=== PATIENT | female | born 1960 | race Caucasian/White ===

== ENCOUNTER 2018-02-21 09:01 | Outpatient (CLI) | payer OTHER | END 2018-02-21 09:14 | disposition home or self-care (01) | LOC: SONOGRAMA 09:01 | DX: N84.0 Polyp of corpus uteri (principal) ==

== ENCOUNTER 2018-03-22 07:40 | Day surgery (SDC) | payer OTHER ==
[~2018-03-22 07:40] MED LIST: MULTI VITAMIN1 EACH PO; SYNTHROID50 MCG PO
[2018-03-22] MEDS ORDERED: DOXYCYCLINE HY100 MG PO (14:04)
[2018-03-22] MEDS ORDERED: CODE1TAB37 PO (14:04)
== END 2018-03-22 16:40 | disposition home or self-care (01) ==
LOC: CIR.AMB 07:40
DX: N84.0 Polyp of corpus uteri (principal); D26.1 Other benign neoplasm of corpus uteri